=== PATIENT | female | born 1945 | race Caucasian/White ===

== ENCOUNTER 2017-08-16 13:23 | Day surgery (SDC) | payer OTHER ==
[~2017-08-16] VITALS: Ht 167.6 cm; Wt 96.2 kg
[~2017-08-16 13:23] MED LIST: LEVO-T75 MCG
== END 2017-08-16 15:25 | disposition home or self-care (01) ==
LOC: ORSCSDS 13:23
PROVIDERS: Internal Medicine Gastroenterology
PROC: 0DBL8ZX Excision of Transverse Colon, Via Natural or Artificial Opening Endoscopic, Diagnostic (ICD-10-PCS; principal; 2017-08-16 14:45)
PROC: 0DBN8ZX Excision of Sigmoid Colon, Via Natural or Artificial Opening Endoscopic, Diagnostic (ICD-10-PCS; principal; 2017-08-16 14:45)
PROC: 0DBH8ZX Excision of Cecum, Via Natural or Artificial Opening Endoscopic, Diagnostic (ICD-10-PCS; principal; 2017-08-16 14:45)
PROC: 0DBP8ZX Excision of Rectum, Via Natural or Artificial Opening Endoscopic, Diagnostic (ICD-10-PCS; principal; 2017-08-16 14:45)
DX: Z12.11 Encounter for screening for malignant neoplasm of colon (principal); D12.0 Benign neoplasm of cecum; D12.3 Benign neoplasm of transverse colon; K62.1 Rectal polyp; K63.5 Polyp of colon; K64.8 Other hemorrhoids; Z86.010 Personal history of colon polyps; E03.9 Hypothyroidism, unspecified; E78.5 Hyperlipidemia, unspecified; I10 Essential (primary) hypertension; Z79.899 Other long term (current) drug therapy; Z87.891 Personal history of nicotine dependence
CPT/HCPCS: 88305

== ENCOUNTER → 2018-11-24 | Outpatient (CLI) | payer MEDICARE | END | disposition home or self-care (01) | LOC: LAB SHORT 15:11 → PLD 15:11 | DX: B07.8 Other viral warts (principal) | CPT/HCPCS: 88305 ==

== ENCOUNTER 2020-02-12 12:09 | Emergency (ER) | payer MEDICARE ==
[~2020-02-12] VITALS: Ht 167.6 cm; Wt 104.3 kg
[2020-02-12] MEDS ORDERED: IMBRUVICA420 MG PO (12:37)
[2020-02-12] MEDS ORDERED: LOSARTAN POTASS50 M1 PO (12:37)
[2020-02-12] MEDS ORDERED: CEPH500 PO (14:09)
== END 2020-02-12 14:55 | disposition home or self-care (01) ==
LOC: ER 12:09
DX: S01.81XA Laceration without foreign body of other part of head, initial encounter (principal); S99.912A Unspecified injury of left ankle, initial encounter; H11.32 Conjunctival hemorrhage, left eye; E03.9 Hypothyroidism, unspecified; E06.9 Thyroiditis, unspecified; Z79.899 Other long term (current) drug therapy; W22.8XXA Striking against or struck by other objects, initial encounter
CPT/HCPCS: 73590; 73610; 99283-25

== ENCOUNTER 2020-07-02 05:23 | Observation (INO) | payer MEDICARE ==
[~2020-07-02] VITALS: Ht 167.6 cm; Wt 114.1 kg
[~2020-07-02 05:23] MED LIST changes: +CEPH500 PO; +IMBRUVICA420 MG PO; -LEVO-T75 MCG; +LEVO-T75 MCG PO; +LOSARTAN POTAS100 M1 PO
[2020-07-02 05:48] LABS: BASOPHILS ABSOLUTE AUTO 0.06 K/mm3 (0.00-0.23); BASOPHILS PERCENT AUTO 0 % (0-2); EOSINOPHILS ABSOLUTE AUTO 0.09 K/mm3 (0.00-0.68); EOSINOPHILS PERCENT AUTO 1 % (0-6); Hematocrit 40.7 % (33.0-51.0); Hemoglobin 13.4 g/dL (11.5-16.0); IMMATURE GRAN ABSOLUTE AUTO 0.05 K/mm3 (0.00-0.10); IMMATURE GRAN PERCENT AUTO 0 % (0-1); LYMPHOCYTES ABSOLUTE AUTO 3.14 K/mm3 (0.84-5.20); LYMPHOCYTES PERCENT AUTO 23 % (21-46); MONOCYTES ABSOLUTE AUTO 0.93 K/mm3 (0.16-1.47); MONOCYTES PERCENT AUTO 7 % (4-13); Mean Corpuscular HGB 30.7 pg (26.0-34.0); Mean Corpuscular HGB Conc 32.9 g/dL (31.5-36.5); Mean Corpuscular Volume 93 fL (80-100); Mean Platelet Volume 12.4 fL (9.1-12.4); NEUTROPHILS ABSOLUTE AUTO 9.39 K/mm3 (1.96-9.15); NEUTROPHILS PERCENT AUTO 69 % (41-73); Platelet Count 135 K/mm3 (150-400); RDW Standard Deviation 41.3 fL (35.1-46.3); Red Blood Cell Count 4.37 M/mm3 (3.80-5.20); White Blood Cell Count 13.66 K/mm3 (4.00-11.30)
[2020-07-02 06:04] LABS: Alanine Aminotransfer (ALT/SGP 20 U/L (12-78); Albumin, Blood 3.5 g/dL (3.4-5.0); Albumin/Globulin Ratio 1.3 (0.8-1.8); Alk Phos 73 U/L (50-136); Anion Gap 2 mmol/L (6-16); Aspartate Aminotrans (AST/SGOT 16 U/L (12-37); Bilirubin, Total 0.6 mg/dL (0.1-1.0); Blood Urea Nitrogen 15 mg/dL (8-24); Bun/Creatinine Ratio 18.1 (12.0-20.0); CO2, Blood 30 mmol/L (21-32); Calcium, Blood 8.4 mg/dL (8.5-10.1); Chloride, Blood 106 mmol/L (98-108); Creatinine, Blood 0.83 mg/dL (0.40-1.00); Globulin, Blood 2.6 g/dL (2.2-4.0); Glomerular Filtration Rate >60 (60-); Glucose, Blood 97 mg/dL (70-99); Potassium, Blood 4.3 mmol/L (3.5-5.5); Sodium, Blood 138 mmol/L (136-145); Total Protein, Blood 6.1 g/dL (6.4-8.2); Troponin I <0.015 ng/mL (0.000-0.040)
[2020-07-02] MEDS ORDERED: OMEP20ER PO (12:28)
[2020-07-02] MEDS ORDERED: ATOR10 PO (12:28)
[2020-07-02 15:07] LABS: International Normalized Ratio 0.95; Prothrombin Time Results 10.3 Sec (9.7-11.5)
--- NOTE | 2020-07-02 18:13 | NUR ---
SHIFT NOTE PT ARRIVED FROM ER THIS AFTERNOON WITH LT SIDED CP. PT ARRIVED STATING THAT PAIN IS WORSE WITH INSPIRATION, NOTHING HAS MADE PAIN BETTER. STS THAT FENTANYL DID NOT CONTROL PAIN WELL. PT REPORTS THAT PAIN BEGAN THIS EVENING. PT DID RECIEVE NITRO IN THE ER BY CAUSED HER TO HAVE HYPOTENSION WITH PRESSURES IN THE 80s. PT DID RECIEVE MORPHONE IVP FOR CP LATER IN THE DAY. PT WITH SHALLOW RAPID RESPIRATIONS. PT DENIES ANY RECENT ILLNESS. A/O X4.
[2020-07-03 04:53] LABS: BASOPHILS ABSOLUTE AUTO 0.06 K/mm3 (0.00-0.23); BASOPHILS PERCENT AUTO 0 % (0-2); EOSINOPHILS ABSOLUTE AUTO 0.02 K/mm3 (0.00-0.68); EOSINOPHILS PERCENT AUTO 0 % (0-6); Hematocrit 34.7 % (33.0-51.0); Hemoglobin 11.3 g/dL (11.5-16.0); IMMATURE GRAN ABSOLUTE AUTO 0.06 K/mm3 (0.00-0.10); IMMATURE GRAN PERCENT AUTO 0 % (0-1); LYMPHOCYTES ABSOLUTE AUTO 2.49 K/mm3 (0.84-5.20); LYMPHOCYTES PERCENT AUTO 18 % (21-46); MONOCYTES ABSOLUTE AUTO 1.67 K/mm3 (0.16-1.47); MONOCYTES PERCENT AUTO 12 % (4-13); Mean Corpuscular HGB 30.5 pg (26.0-34.0); Mean Corpuscular HGB Conc 32.6 g/dL (31.5-36.5); Mean Corpuscular Volume 94 fL (80-100); NEUTROPHILS ABSOLUTE AUTO 9.71 K/mm3 (1.96-9.15); NEUTROPHILS PERCENT AUTO 69 % (41-73); Platelet Count 126 K/mm3 (150-400); RDW Coefficient Variation 12.4 % (11.7-14.2); RDW Standard Deviation 42.6 fL (35.1-46.3); Red Blood Cell Count 3.71 M/mm3 (3.80-5.20); White Blood Cell Count 14.01 K/mm3 (4.00-11.30)
--- NOTE | 2020-07-03 04:57 | NUR ---
SHIFT SUMMARY PATIENT IS ALERT AND ORIENTED X4. SBA TO THE BEDSIDE COMMODE. NPO AFTER MIDNIGHT. PATIENT COMPLAINTS OF CP THAT INCREASES WITH INSPIRATION, CALLED HOSPITALIST AND MEDICATED PER EMAR. CP RELIEVED. NO OTHER COMPLAINTS OF CP. HEPARIN gtt INFUSING. 02 SATS 94% ON RA. VSS, NO ACUTE CHANGES. CALL LIGHT IN REACH.
[2020-07-03 05:03] LABS: Mean Platelet Volume 13.4 fL (9.1-12.4)
[2020-07-03 05:31] LABS: Magnesium, Blood 2.2 mg/dL (1.6-2.4)
[2020-07-03 05:32] LABS: Bun/Creatinine Ratio 23.4 (12.0-20.0); Calcium, Blood 8.4 mg/dL (8.5-10.1); Creatinine, Blood 1.07 mg/dL (0.40-1.00); Potassium, Blood 4.3 mmol/L (3.5-5.5)
[2020-07-03] MEDS ORDERED: NAPR500 PO (14:00)
[2020-07-03] MEDS ORDERED: ASPI325 PO (14:00)
--- NOTE | 2020-07-03 16:02 | NUR ---
REPORT CALLED TO AUDELIA CHAVEZ ON MEDICAL FLOOR. PT WITH HEPARIN INFUSING ON TRANSPORT. IV PATENT. PT VISITING WITH FAMILY, MARY HDEZ.
--- NOTE | 2020-07-03 16:47 | NUR ---
PATIENT ARRIVES AROUND 1630 IN W/C WITH HEPARIN INFUSING. HEPARIN D'C PER ORDER. TELE ON AND PER TECH SR AT 74. DENIES ANY C.P. OR DIFFICULTY BREATHING. LUNGS CLEAR. TO HAVE SECOND PART OF STRESS TEST TOMORROW MORNING AT 8AM. PATIENT AWARE CAN HAVE CAFFEINE UP TILL 12 HOURS PRIOR TO TEST. COOPERATIVE. PLEASANT. STEADY GAIT TO BATHROOM. INDEPENDENT IN ROOM. NPO AFTER MIDNITE. STS PAIN WORSE WHEN TAKING DEEP INSPIRATION. WCTM.
--- NOTE | 2020-07-03 18:35 | NUR ---
ADMIT: 07/02/20 DISCHARGE: DX: CP CC: kwilcox MANUEL CALL: Met with Ana Maria, call her at home for manuel. 1 week with pcp. RESIDENCE: home CAREGIVER: DESMOND VASQUES ([place]) DX: Leukemia, GERD, colon cancer, HTN, see list DME: none CCM: Referral- 2020 HOME HEALTH: none SUMMARY: 07/02/20 07/03/20 Met with Ana Maria, discussed care coordination and reviewed home assessment. Did not identify any care needs she would have at discharge. She has friends and a sister that will be helping her if needed, She provides all self care, drives, cooks and shops. Discussed manuel call and follow up appointment in 1 week with Rama. She is expected to discharge Tuesday and 2 study complete. cp Atypical chest pain: Etiology likely secondary to acute pericarditis, patient does admit to a history of recent viral illness 10 days ago. Also had a Covid vaccination done about a month ago.
--- NOTE | 2020-07-04 05:35 | NUR ---
SHIFT SUMMARY: A&OX4, VSS, TELEMETRY HAS REMAINED NSR WITH RATE IN THE 70'S. PATIENT RATES CHEST PAIN 3/10 WITH DEEP INSPIRATION. NAPROSEN WAS GIVEN X1 WITH GOOD EFFECT. PATIENT REPORTS PAIN IN MUCH BETTER THIS AM, EVEN WITH INSPRATION.
[2020-07-04 14:27] LABS: Anion Gap 2 mmol/L (6-16); Blood Urea Nitrogen 19 mg/dL (8-24); Bun/Creatinine Ratio 21.2 (12.0-20.0); CO2, Blood 28 mmol/L (21-32); Calcium, Blood 8.7 mg/dL (8.5-10.1); Chloride, Blood 106 mmol/L (98-108); Glomerular Filtration Rate >60 (60-); Glucose, Blood 110 mg/dL (70-99); Sodium, Blood 136 mmol/L (136-145)
--- NOTE | 2020-07-04 16:05 | NUR ---
DISCHARGE NOTE PATIENT HAD 2ND STRESS TEST TODAY. READ BY DR TENA. PATIENT DISCHARGED PER DR TENA ORDER. PATIENT DENIES CHEST PAIN THROUGHOUT SHIFT. NO ACUTE CHANGES NOTATED DURING SHIFT. PATIENT EDUCATED BY PAOLA CHAVEZ. PATIENT WHEELED OUT BY TIFFANIE DELA CRUZ RN AND PATIENTS SISTER TRANSPORTED. PATIENT STATED AGREEMENT AND UNDERSTOOD DISCHARGE INSTRUCTIONS. MALLIKA
--- NOTE | 2020-07-04 16:19 | NUR ---
THIS RN HAS ASSESSED THE PT. THIS RN REVIEWED & AGREES WITH STEAM TRAIN DRIVER DOCUMENTATION ON THE PT THIS SHIFT.
[2020-07-07] MEDS ORDERED: CITA20 PO (10:42)
== END 2020-07-04 15:23 | disposition home or self-care (01) ==
LOC: ER 05:23 → PCU 05:24 → MEDS 07-03 16:11 → ENPENDDIS 07-04 14:58 → MEDS 07-04 15:23
PROVIDERS: Emergency Medicine; Pharmacist; ADMIT Internal Medicine
DX: R07.89 Other chest pain (principal); I30.1 Infective pericarditis; B97.89 Other viral agents as the cause of diseases classified elsewhere; C91.11 Chronic lymphocytic leukemia of B-cell type in remission; E03.9 Hypothyroidism, unspecified; R79.1 Abnormal coagulation profile; K21.9 Gastro-esophageal reflux disease without esophagitis; I10 Essential (primary) hypertension; E78.5 Hyperlipidemia, unspecified; R59.0 Localized enlarged lymph nodes; R91.8 Other nonspecific abnormal finding of lung field; I95.2 Hypotension due to drugs; T46.3X5A Adverse effect of coronary vasodilators, initial encounter; Z87.891 Personal history of nicotine dependence; Z88.8 Allergy status to other drugs, medicaments and biological substances; Z79.899 Other long term (current) drug therapy; Z86.19 Personal history of other infectious and parasitic diseases; Z82.49 Family history of ischemic heart disease and other diseases of the circulatory system
CPT/HCPCS: 36415; 71046; 71260; 78452; 80048; 80053; 83735; 83880; 84484; 85025; 85379; 85610; 85730; 93005; 93010; 93017; 93306; 96361; 96374; 96375; 96376; 99285-25; A9270; A9500; G0378; J0706; J1644; J2270; J2785; J3010; J7030; Q9967

== ENCOUNTER 2020-07-07 16:16 | Inpatient (IN) | payer MEDICARE ==
[~2020-07-07] VITALS: Ht 167.6 cm; Wt 111.4 kg
[~2020-07-07 16:16] MED LIST changes: +ASPI325 PO; +ATOR10 PO; +CITA20 PO; +NAPR500 PO; +OMEP20ER PO
[2020-07-07 17:04] LABS: BASOPHILS ABSOLUTE AUTO 0.06 K/mm3 (0.00-0.23); BASOPHILS PERCENT AUTO 1 % (0-2); EOSINOPHILS ABSOLUTE AUTO 0.18 K/mm3 (0.00-0.68); EOSINOPHILS PERCENT AUTO 2 % (0-6); Hematocrit 36.3 % (33.0-51.0); Hemoglobin 11.6 g/dL (11.5-16.0); IMMATURE GRAN ABSOLUTE AUTO 0.04 K/mm3 (0.00-0.10); IMMATURE GRAN PERCENT AUTO 0 % (0-1); LYMPHOCYTES ABSOLUTE AUTO 3.22 K/mm3 (0.84-5.20); LYMPHOCYTES PERCENT AUTO 31 % (21-46); MONOCYTES ABSOLUTE AUTO 1.08 K/mm3 (0.16-1.47); MONOCYTES PERCENT AUTO 10 % (4-13); Mean Corpuscular Volume 94 fL (80-100); Mean Platelet Volume 12.4 fL (9.1-12.4); NEUTROPHILS ABSOLUTE AUTO 5.99 K/mm3 (1.96-9.15); NEUTROPHILS PERCENT AUTO 57 % (41-73); Platelet Count 187 K/mm3 (150-400); RDW Coefficient Variation 12.2 % (11.7-14.2); RDW Standard Deviation 42.3 fL (35.1-46.3); Red Blood Cell Count 3.87 M/mm3 (3.80-5.20); White Blood Cell Count 10.57 K/mm3 (4.00-11.30)
[2020-07-07 17:21] LABS: Alanine Aminotransfer (ALT/SGP 92 U/L (12-78); Albumin, Blood 3.1 g/dL (3.4-5.0); Albumin/Globulin Ratio 0.9 (0.8-1.8); Alk Phos 204 U/L (50-136); Anion Gap 7 mmol/L (6-16); Aspartate Aminotrans (AST/SGOT 58 U/L (12-37); Bilirubin, Total 0.7 mg/dL (0.1-1.0); Blood Urea Nitrogen 16 mg/dL (8-24); Bun/Creatinine Ratio 17.9 (12.0-20.0); CO2, Blood 26 mmol/L (21-32); Calcium, Blood 9.1 mg/dL (8.5-10.1); Chloride, Blood 106 mmol/L (98-108); Globulin, Blood 3.5 g/dL (2.2-4.0); Glomerular Filtration Rate >60 (60-); Glucose, Blood 86 mg/dL (70-99); Potassium, Blood 4.3 mmol/L (3.5-5.5); Sodium, Blood 139 mmol/L (136-145); Total Protein, Blood 6.6 g/dL (6.4-8.2); Troponin I <0.015 ng/mL (0.000-0.040)
[2020-07-07] MEDS ORDERED: COLCRYS0.6 M1 PO (17:44)
[2020-07-07 18:15] LABS: C-REACTIVE PROTEIN, EXT RANGE 9.62 mg/dL (0.000-0.300)
[2020-07-07 18:23] LABS: C-Reactive Protein, High Sens. 87.5 mg/L (0.000-3.000)
[2020-07-07 19:41] LABS: Automated BF RBC Count 0.327 M/mm3 (0-0); Automated BF WBC Count 1.389 K/mm3 (0-999); Body Fluid WBC Count 1389 /mm3 (0-999); RBC Count, Body Fluid 327000 /mm3 (0-0)
[2020-07-07 19:43] LABS: Albumin, Body Fluid 2.5 g/dL; Glucose, Body Fluid 75 mg/dL; Protein, Body Fluid 4.4 g/dL
--- NOTE | 2020-07-07 20:00 | NUR ---
AT 1908 PATIENT ARRIVED TO ICU 4 VIA BED FROM IT INFRASTRUCTURE CONSULTANT , PLACED ON ICU MONITORS. PARACARDIAL DRAIN TO GRAVITY BAG, SWITCHED TO VACUTAINER BY SHARLENE AND JHOAN RN'S WITH SMALL AMT OF BLOODY DRAINAGE REMOVED INTO CONTAINER. PATIENT HAVING NO COMPLAINTS AT THIS TIME. AT 193 DOCTOR PAUL IN TO SEE PATIENT, VACUTAINER CHANGED AFTER DOCTOR HERMAN FLUSHED LINE WITH 20 CC OF NS AT BEDSIDE. AT 1999 PAT[place] UP TO [facility] [place] 1200 CC OF YELLOW URINE. PATIENT KARRIE GETTING UP WELL, NO CHANGES TO DRAIN OR DRAIN SITE.
[2020-07-07] MEDS ORDERED: VITAMIN D310 MC5 PO ×2 (20:16→20:19)
[2020-07-07] MEDS ORDERED: VITAMIN D310 MC4 PO (20:17)
[2020-07-07 21:01] LABS: Appearance, Body Fluid Bloody (Clear); Color, Body Fluid Red (None-Yellow); Total Cell Count, Body Fluid 100
--- NOTE | 2020-07-07 21:40 | NUR ---
REAGAN REHEAT FURNACE OPERATOR NOTIFIED OF PATIENT CONTINUED HYPERTENSION, AND COMPLAINS OF SLIGHT PRESSURE TO HER RIGHT CHEST BELOW HER RIGHT BREAST AREA. SEE NEW ORDERS
--- NOTE | 2020-07-07 23:46 | NUR ---
PATIENT C/O PRESSURE TYPE PAIN TO RIGHT CHEST AREA, UNDER RIGHT BREAST UP TO RIGHT AXIAL. HAD RELIEF OF PAIN WITH FENTANYL IV THEN PAIN RETURNED WITH SHARP PAIN UNDER RIGHT BREAST THAT INCREASED WITH DEEP BREATH. LUNG SOUNDS CLEAR NO SWELLING SEEN TO DRAIN INSERTION SITE OR TO SURROUNDING AREA'S NO CREPITUS. PATIENT UP TO BSC TO VOID HAVING INCREASE TO PAIN AND HAVING AUDIBLE WHEEZES. NO RELIEF WITH FENTANYL. NO DRAINAGE FROM PERICARDIAL DRAIN. HYPERTENSION CONTINUES. DOCTOR PAUL AND MONICA TOOL TURRET LATHE SET UP OPERATOR BOTH NOTIFIED OF CHANGES SEE NEW ORDERS. CXR AND EKG DONE. PATIENT KARRIE PO WITHOUT DIFFICULTY. MEDICATIONS GIVEN SEE EMAR.
--- NOTE | 2020-07-08 06:25 | NUR ---
SUMMARY PATIENT VERBALIZED PAIN RELIEF. WAS ABLE TO GET SOME SLEEP DURING THE NIGHT. AWAKENS TO VERBAL STIMULI. PERICARDIAL DRAIN INSERTION SITE REMAINS UNCHANGED T/O NIGHT. RED DRAINAGE WITHIN LINE NO DRAINAGE IN VACUUM CANISTER. PATIENT NO LONGER HYPERTENSIVE. WHILE SLEEPING BIOX DROPPING TO 88% OXYGEN PLACED 2L/NC WHILE SHE IS SLEEPING.
--- NOTE | 2020-07-08 07:09 | NUR ---
Received report from Vaishnavi CHAVEZ. Patient is awake and alert in bed and is able to commun icate her needs. She is on 2L O2 via NC and sats 96%, will wean off as she just needed for sleeping. She has pericardial drain to container and has approx. 3cc of seroussanguinous fluid. She has 18ga IV to LUFA and is infusing 1bag NS at 75 ml/hr. She also has 20ga IV to RAC dressing intact and site WNL's and is flushed and SL after Blood draw. She is independent in bed and positions self for comfort. She denies any current needs.
[2020-07-08 07:31] LABS: BASOPHILS ABSOLUTE AUTO 0.03 K/mm3 (0.00-0.23); BASOPHILS PERCENT AUTO 0 % (0-2); EOSINOPHILS ABSOLUTE AUTO 0.15 K/mm3 (0.00-0.68); EOSINOPHILS PERCENT AUTO 2 % (0-6); Hematocrit 35.4 % (33.0-51.0); Hemoglobin 11.6 g/dL (11.5-16.0); IMMATURE GRAN ABSOLUTE AUTO 0.03 K/mm3 (0.00-0.10); IMMATURE GRAN PERCENT AUTO 0 % (0-1); LYMPHOCYTES ABSOLUTE AUTO 2.84 K/mm3 (0.84-5.20); LYMPHOCYTES PERCENT AUTO 32 % (21-46); MONOCYTES ABSOLUTE AUTO 1.04 K/mm3 (0.16-1.47); MONOCYTES PERCENT AUTO 12 % (4-13); Mean Corpuscular HGB 30.7 pg (26.0-34.0); Mean Corpuscular HGB Conc 32.8 g/dL (31.5-36.5); Mean Corpuscular Volume 94 fL (80-100); Mean Platelet Volume 11.9 fL (9.1-12.4); NEUTROPHILS ABSOLUTE AUTO 4.73 K/mm3 (1.96-9.15); NEUTROPHILS PERCENT AUTO 54 % (41-73); Platelet Count 206 K/mm3 (150-400); RDW Coefficient Variation 12.1 % (11.7-14.2); RDW Standard Deviation 41.9 fL (35.1-46.3); Red Blood Cell Count 3.78 M/mm3 (3.80-5.20); White Blood Cell Count 8.82 K/mm3 (4.00-11.30)
[2020-07-08 07:46] LABS: Alanine Aminotransfer (ALT/SGP 62 U/L (12-78); Albumin, Blood 2.6 g/dL (3.4-5.0); Albumin/Globulin Ratio 0.8 (0.8-1.8); Alk Phos 167 U/L (50-136); Anion Gap 6 mmol/L (6-16); Aspartate Aminotrans (AST/SGOT 26 U/L (12-37); Bilirubin, Total 0.4 mg/dL (0.1-1.0); Blood Urea Nitrogen 19 mg/dL (8-24); Bun/Creatinine Ratio 20.3 (12.0-20.0); CO2, Blood 27 mmol/L (21-32); Calcium, Blood 8.3 mg/dL (8.5-10.1); Chloride, Blood 107 mmol/L (98-108); Creatinine, Blood 0.94 mg/dL (0.40-1.00); Globulin, Blood 3.1 g/dL (2.2-4.0); Glomerular Filtration Rate >60 (60-); Glucose, Blood 94 mg/dL (70-99); Potassium, Blood 4.4 mmol/L (3.5-5.5); Sodium, Blood 140 mmol/L (136-145); Total Protein, Blood 5.7 g/dL (6.4-8.2)
--- NOTE | 2020-07-08 09:10 | NUR ---
Patient remains alert and oriented and communicates her needs. Dr Blood by ansd discussed with her to stay onother day to watch. ECHO done and awaiting results. No new amount of pericardial drainage. IV fluid was for 1 bag and now dc'd, flushed and SL'd. She tolerated am meds and breakfast well. She uses call light appropriately.
--- NOTE | 2020-07-08 11:19 | NUR ---
Dr Richardson in assessing patient and no new orders. Gave her supplies and she did am care. Spiritual care by to see patient. Placed SCD's on patient and repositioned her in bed. VSS, See EMR
[2020-07-08 11:44] LABS: Lactate Dehydrogenase, Body Fl 580 U/L; Triglycerides, Body Fluid 59 mg/dL
[2020-07-08 13:21] LABS: pH, Body Fluid 7.9
--- NOTE | 2020-07-08 13:28 | NUR ---
Patient tolerated lunch with minimal assistance. Still no increased output of the pericardial draing, seroussanguinous fluid. VSS, See EMR. She has been on phone most of day talking with friends. Systolic 140's and HR 70's. gave lasixs and she has 1500 mls of clear yellow output.
--- NOTE | 2020-07-08 14:00 | NUR ---
Patient arrived via gurney from ER, he was a two person slide transfer. He came on home vent SIMV mode 14, 400, PS 12, PEEP 4, and sats 96%. Patient has 2L O2 bleed in to vent. Patient has 22ga IV in right hand, dressing intact and site WNL's. Patient has 4Fr shiley trach, that is to be changed to 6Fr today at 1730. Patient has Peg tube to upper quad. He hassupra pubic cath draining to gravity light kiki urine. Mother at bedside and is suctioning trach and ST doing oral care prior to going to head CT. Patient is able to communicate with mother and minimal to staff. Dr Russo in with patient doing assessment.
--- NOTE | 2020-07-08 15:30 | NUR ---
patient has been resting off and on. VSS, See EMR. She has been off and on phone most of shift. She has denied and shest pain. There and been no new output. aman worked well. She denies any current needs.
--- NOTE | 2020-07-08 15:59 | NUR ---
Patient went to CT and after reading is going to be transferred to [facility]. Echo done. CN placed 20/8 Powerlide to [facility] and VBG sent. He continues on same home vent. He is afebrile at 98.2 degrees. Trach change out postponed with bronch and thoracentesis. Patient resting. Dr Russo spoke with family and patient.
--- NOTE | 2020-07-08 17:00 | NUR ---
ADMIT: 07/07/2020 DISCHARGE: DX: pericaridal effusion with cardiac tamponade CC: Chloé Mcmahon MANUEL CALL: RESIDENCE: Home - [facility] [address] [address], [place] [address] CAREGIVER: DESMOND VASQUES ([place]) HOME PHONE: DX: pericarditis (hospitalized- discharge 07/04/20), CLL, HTN DME: None CCM: Referral 2019 HOME HEALTH: None Update 07/08/2020 1130 - Discussed care with Dr. Jordan Richardson. Pt. not appropriate for discharge at this time. Per notes from hospitalist this am pericardial tube will be left in place for 24 hours. Recheck limited echocardiogram tomorrow. SUMMARY: Past medical history significant for recent viral pericarditis, discharged 07/04/20. Pt. was undergoing a follow-up echocardiogram 07/07/20, and was subsequently sent to the ED due to ECHO showing large pericardial effusion with tamponade. A/P - 1: Pericardial effusion with cardiac tamponade. - Cardiology consult, Dr. Blood - patient transferred to cath lab nurse emergently for drainage. - Fluid analysis ordered - Cell count, gram stain, protein, cytology, bacterial and viral cultures, - ICU after cath lab nurse - Telemetry and pulse oximetry - Scheduled Naproxen 500 mg BID - Pain and nausea control 2: Elevated liver enzymes - New for patient, possibly due to congestion r/t tamponade - CMP in AM 3: HTN - Hypertensive 184/79 in ED, waiting for transfer to cath lab nurse. Hx. of HTN. - Continue home medications 4: HLD - Continue home medications 5: Hypothyroidism - Continue home synthroid 6: GERD - Continue home omeprazole 7: Mechanical venous thromboembolism (VTE) - prophylaxis in place - Chloé Mcmahon Notes Copied
--- NOTE | 2020-07-08 17:47 | NUR ---
Spiritual care note: Mrs. Burch has a positive spirit and feels blessed to have made it through so many medical problems. She states that she is in remission after cancer treatments and feels hopeful that proceedure this admission will allow her to "get back to normal." She feels well-loved and supported by family and friends and is deeply appreciative of prayer/spiritual direction. I will remain available.
--- NOTE | 2020-07-08 18:10 | NUR ---
Patient tolerated dinner with little help. She took meds with water and no other assistance needed. VSS, See EMR. She continues rest and awakens easily for care. Bilateral IV's flushed and SL. Dr Blood will reassess tomorrow am.
--- NOTE | 2020-07-08 20:29 | NUR ---
PATIENT AWAKE WATCHING TV AND TALKING WITH FRIENDS AND FAMILY ON CELL PHONE. RESPIRATORY PANEL SWAB DONE AND SENT TO LAB. PATIENT DENIES PAIN AT THIS TIME. PERICARDIAL DRAIN TO MID CHEST WITH DRESSING INTACT SMALL AMT OF BLOODY DRAINAGE CONTAINED IN DRESSING AND DRY. AREA AROUND SITE SOFT, NO SWELLING SEEN. SMALL AMT OF PINK/YELLOW DRAINAGE IN VACUTAINER. HEART TONES REMAIN DISTANT.
[2020-07-08 21:29] LABS: Adenovirus Not Detected (NOT DETECT); Coronavirus 229E Not Detected (NOT DETECT); Coronavirus HKU1 Not Detected (NOT DETECT); Coronavirus NL63 Not Detected (NOT DETECT); Coronavirus OC43 Not Detected (NOT DETECT)
[2020-07-08 21:30] LABS: Bordetella pertussis Not Detected (NOT DETECT); Chlamydophila pneumoniae Not Detected (NOT DETECT); Human Metapneumovirus Not Detected (NOT DETECT); Human Rhinovirus/Enterovirus Not Detected (NOT DETECT); Influenza A/2009-H1 Not Detected (NOT DETECT); Influenza A/H1 Not Detected (NOT DETECT); Influenza A/H3 Not Detected (NOT DETECT); Influenza B Not Detected (NOT DETECT); Mycoplasma pneumoniae Not Detected (NOT DETECT); Parainfluenza Virus 1 Not Detected (NOT DETECT); Parainfluenza Virus 2 Not Detected (NOT DETECT); Parainfluenza Virus 3 Not Detected (NOT DETECT); Parainfluenza Virus 4 Not Detected (NOT DETECT); Respiratory Syncytial Virus Not Detected (NOT DETECT); SARS-Cov-2 (COVID-19), BioFire Not Detected (NOT DETECT)
--- NOTE | 2020-07-09 01:08 | NUR ---
WHILE SLEEPING PATIENT OXYGEN SAT DOWN TO 87% OXYGEN PLACE AT 2L/NC TO MAINTAIN BIOX >90%
[2020-07-09 06:35] LABS: Alanine Aminotransfer (ALT/SGP 44 U/L (12-78); Albumin, Blood 2.4 g/dL (3.4-5.0); Albumin/Globulin Ratio 0.9 (0.8-1.8); Alk Phos 138 U/L (50-136); Anion Gap 3 mmol/L (6-16); Aspartate Aminotrans (AST/SGOT 11 U/L (12-37); Bilirubin, Total 0.3 mg/dL (0.1-1.0); Blood Urea Nitrogen 20 mg/dL (8-24); Bun/Creatinine Ratio 23.4 (12.0-20.0); CO2, Blood 29 mmol/L (21-32); Calcium, Blood 8.1 mg/dL (8.5-10.1); Chloride, Blood 106 mmol/L (98-108); Creatinine, Blood 0.86 mg/dL (0.40-1.00); Globulin, Blood 2.8 g/dL (2.2-4.0); Glomerular Filtration Rate >60 (60-); Glucose, Blood 114 mg/dL (70-99); Potassium, Blood 4.4 mmol/L (3.5-5.5); Sodium, Blood 138 mmol/L (136-145); Total Protein, Blood 5.2 g/dL (6.4-8.2)
--- NOTE | 2020-07-09 06:43 | NUR ---
SUMMARY PATIENT RESTING QUIETLY T/O NIGHT. WHILE SLEEPING BIOX DOWN TO 87% OXYGEN PLACED 2L/NC TO MAINTAIN BIOX >90% WHILE SLEEPING. PERICARDIAL DRAIN REMAINS UNCHANGED WITH MIN YELLOW/PINK SEROSANG FLUID. DRESSING AND AREA AROUND INSERTION SITE REMAINS UNCHANGED. NO C/O PAIN T/O NIGHT, ABLE TO ASSIST WITH REPOSITIONING IN BED WITHOUT DIFFICULTY.
[2020-07-09 07:00] LABS: BASOPHILS ABSOLUTE AUTO 0.06 K/mm3 (0.00-0.23); BASOPHILS PERCENT AUTO 1 % (0-2); EOSINOPHILS ABSOLUTE AUTO 0.16 K/mm3 (0.00-0.68); EOSINOPHILS PERCENT AUTO 2 % (0-6); Hematocrit 33.8 % (33.0-51.0); Hemoglobin 10.9 g/dL (11.5-16.0); IMMATURE GRAN ABSOLUTE AUTO 0.03 K/mm3 (0.00-0.10); IMMATURE GRAN PERCENT AUTO 0 % (0-1); LYMPHOCYTES ABSOLUTE AUTO 2.02 K/mm3 (0.84-5.20); LYMPHOCYTES PERCENT AUTO 24 % (21-46); MONOCYTES ABSOLUTE AUTO 0.94 K/mm3 (0.16-1.47); MONOCYTES PERCENT AUTO 11 % (4-13); Mean Corpuscular HGB 30.2 pg (26.0-34.0); Mean Corpuscular HGB Conc 32.2 g/dL (31.5-36.5); Mean Corpuscular Volume 94 fL (80-100); Mean Platelet Volume 12.1 fL (9.1-12.4); NEUTROPHILS ABSOLUTE AUTO 5.08 K/mm3 (1.96-9.15); NEUTROPHILS PERCENT AUTO 61 % (41-73); Platelet Count 193 K/mm3 (150-400); RDW Standard Deviation 41.9 fL (35.1-46.3); Red Blood Cell Count 3.61 M/mm3 (3.80-5.20); White Blood Cell Count 8.29 K/mm3 (4.00-11.30)
--- NOTE | 2020-07-09 08:26 | NUR ---
SHIFT ASSESSMENT PATIENT A AND O X4, PATIENT FEBRILE WITH NO COMPLAINTS OF PAIN. LUNGS CLEAR BILATERALLY WITH NO EXERTION, BOWEL SOUNDS HEARD IN ALL FOUR QUADRANTS, PATIENT HAS A FOLLY THAT IS DRAINING AND PATIENT, SKIN IS DRY AND INTACT, BOTH IVS FLUSHED AND SALINE LOCKED. BED LOW WITH CALL LIGHT IN REACH. WILL CONTINUE TO MONITOR THE PATIENT.
--- NOTE | 2020-07-09 08:30 | NUR ---
INITIAL ASSESSMENT I AGREE WITH STUDENT NURSE DOCUMENTATION. PATIENT ALERT AND ORIENTED X 4, AFEBRILE. PATIENT STATES PAIN IS MANAGEABLE AT THIS TIME. LUNGS CLEAR THROUGHOUT. PATIENT SATTING 90% AND GREATER ON RA. REPORT RECEIVED THAT PATIENT PLACED ON 2 L NC TO KEEP SATS 90% AND GREATER ON SITECORE DEVELOPER. PATIENT IN SR, HR 60S TO 70S. SBP 1-TEENS TO 160S. PERICARDIAL EFFUSION DRAIN TO MID CHEST TO SUCTION BULB; DRAINING MINIMAL AMOUNT OF SEROSANGUINEOUS FLUID. EDEMA NOTED TO BLES. SCDS IN PLACE. GI APPEARS WNL. OWENS IN PLACE DRAINING LIGHT YELLOW, CLEAR URINE. PATIENT RECEIVING SCHEDULED LASIX. REDDENED SKIN TO LOWER ABD. IVS FLUSHED AND SALINE LOCKED. BED LOW, CALL LIGHT IN REACH. WILL CONTINUE TO MONITOR PATIENT FREQUENTLY THROUGHOUT SHIFT.
--- NOTE | 2020-07-09 08:32 | NUR ---
DR. MILLER IN TO SEE PATIENT. INFORMED PATIENT BP SOFT DURING NIGHT. ORDERS RECEIVED.
--- NOTE | 2020-07-09 12:30 | NUR ---
PATIENT AFEBRILE. NO COMPLAINTS AT THIS TIME. PATIENT REMAINS SATTING 90% AND GREATER ON RA. PATIENT IN SR, HR 60S TO 70S. SBP 130S TO 150S. PERICARDIAL DRAIN PULLED BY DR. MILLER AT 1227. GAUZE AND TEGADERM IN PLACE. NO BLEEDING NOTED. NO OTHER ACUTE CHANGES TO NOTE ON AT THIS TIME. WILL CONTINUE TO MONITOR.
--- NOTE | 2020-07-09 16:47 | NUR ---
PATIENT AFEBRILE. NO COMPLAINTS OF PAIN. HR 60S TO 70S. SBP 130S TO 160S. PATIENT REMAINS SATTING 90% AND GREATER ON RA. OWENS REMOVED; PATIENT TOLERATED WELL. NO OTHER ACUTE CHANGES TO NOTE ON AT THIS TIME. WILL CONTINUE TO MONITOR.
--- NOTE | 2020-07-09 18:25 | NUR ---
SHIFT SUMMARY PATIENT REMAINED ALERT AND ORIENTED X 4, AFEBRILE. PATIENT HAD NO COMPLAINTS OF PAIN. PATIENT REMAINED SATTING 90% AND GREATER ON RA. PATIENT REMAINED IN SR, HR 60S TO 70S. SBP 1-TEENS TO 160S. NO BM THIS SHIFT. PATIENT GIVEN BROWN COW DRINK TO HELP WITH SOFTENING STOOL PER PATIENT REQUEST. OWENS DRAINED 2650 MLS OF LIGHT YELLOW COLORED URINE. OWENS REMOVED THIS SHIFT. PATIENT REPORTS VOIDING WITH LIBRARY MONITOR SINCE. PERICARDIAL EFFUSION DRAIN AND SUCTION BULB REMOVED THIS SHIFT. VERY MINIMAL AMOUNT OF SEROSANGUINEOUS FLUID OUT FROM IT BEFORE REMOVAL. DRESSING AT SITE REMAINS C/D/I. IVS REMAIN SALINE LOCKED. ECHO PERFORMED THIS SHIFT. PATIENT RECEIVED COMPLETE BED BATH THIS SHIFT. PATIENT MADE PCU STATUS. PATIENT HAS NO COMPLAINTS AT THIS TIME. BED LOW, CALL LIGHT IN REACH. REPORT WILL BE GIVEN TO ONCOMING GROUP THERAPY COUNSELOR NURSE SHORTLY.
[2020-07-10 03:51] LABS: BASOPHILS ABSOLUTE AUTO 0.06 K/mm3 (0.00-0.23); BASOPHILS PERCENT AUTO 1 % (0-2); EOSINOPHILS ABSOLUTE AUTO 0.11 K/mm3 (0.00-0.68); EOSINOPHILS PERCENT AUTO 1 % (0-6); Hematocrit 34.8 % (33.0-51.0); Hemoglobin 11.4 g/dL (11.5-16.0); IMMATURE GRAN ABSOLUTE AUTO 0.05 K/mm3 (0.00-0.10); IMMATURE GRAN PERCENT AUTO 1 % (0-1); LYMPHOCYTES ABSOLUTE AUTO 2.13 K/mm3 (0.84-5.20); LYMPHOCYTES PERCENT AUTO 20 % (21-46); MONOCYTES ABSOLUTE AUTO 1.23 K/mm3 (0.16-1.47); MONOCYTES PERCENT AUTO 12 % (4-13); Mean Corpuscular HGB 29.8 pg (26.0-34.0); Mean Corpuscular HGB Conc 32.8 g/dL (31.5-36.5); Mean Corpuscular Volume 91 fL (80-100); Mean Platelet Volume 11.8 fL (9.1-12.4); NEUTROPHILS ABSOLUTE AUTO 6.94 K/mm3 (1.96-9.15); NEUTROPHILS PERCENT AUTO 66 % (41-73); Platelet Count 216 K/mm3 (150-400); RDW Coefficient Variation 11.9 % (11.7-14.2); RDW Standard Deviation 39.4 fL (35.1-46.3); Red Blood Cell Count 3.82 M/mm3 (3.80-5.20); White Blood Cell Count 10.52 K/mm3 (4.00-11.30)
[2020-07-10 04:09] LABS: Alanine Aminotransfer (ALT/SGP 34 U/L (12-78); Albumin, Blood 2.5 g/dL (3.4-5.0); Albumin/Globulin Ratio 0.9 (0.8-1.8); Alk Phos 144 U/L (50-136); Anion Gap 2 mmol/L (6-16); Aspartate Aminotrans (AST/SGOT 14 U/L (12-37); Bilirubin, Total 0.5 mg/dL (0.1-1.0); Blood Urea Nitrogen 14 mg/dL (8-24); Bun/Creatinine Ratio 18.3 (12.0-20.0); CO2, Blood 31 mmol/L (21-32); Calcium, Blood 8.2 mg/dL (8.5-10.1); Chloride, Blood 103 mmol/L (98-108); Creatinine, Blood 0.76 mg/dL (0.40-1.00); Globulin, Blood 2.9 g/dL (2.2-4.0); Glomerular Filtration Rate >60 (60-); Glucose, Blood 105 mg/dL (70-99); Potassium, Blood 4.3 mmol/L (3.5-5.5); Sodium, Blood 136 mmol/L (136-145); Total Protein, Blood 5.4 g/dL (6.4-8.2)
--- NOTE | 2020-07-10 05:21 | NUR ---
STUNTMAN SUMMARY PT DENIED ANY CP OR DYSPNEA THIS SHIFT, PT TOLERATED AMBULATING TO TOILET FROM BED W/O BECOMING SOB. BP ELEVATED AT START OF SHIFT W SBP IN 150'S BUT RESOLVED AFTER RECIEVING HER HS DOSE OF LOPRESSOR. SITE ON THE PT'S CHEST WHERE DRAIN WAS REMOVED SHOWS NO S/S OF INFLAMATION AND DRESSING IS C/D/I. PT MAINTAINED O2 SATS >92% ON RM AIR THIS SHIFT. PT GIVEN MILK OF MAG AT START OF SHIFT AND PT HAD BM'S X2. PT HAS BEEN VOIDING WELL THIS SHIFT FOLLOWING REMOVAL OF OWENS. TELE- NSR 60-70'S. WCTM.
--- NOTE | 2020-07-10 09:26 | NUR ---
Assumed care of pt at 0700. Report received from Dick CHAVEZ. Pt A&O x 4. Answers questions. Follows commands. Verbalizes needs. Pleasant and cooperative with care. Independent in room. Pt on room air. SpO2 90% or greater. SR per monitor. BP stable. Pt sitting up in chair. Call light in reach. Pt denies need at this time.
--- NOTE | 2020-07-10 10:20 | NUR ---
Echocardiogram completed.
--- NOTE | 2020-07-10 11:25 | NUR ---
Paula with Bedside RN Sofya prior to Pt visit and discussed case. Pt to possibly D/C home today. Pt sitting in chair upon arrival. Pt denies pain and dyspnea at this time. Inquired about family with Pt reporting losing her to cancer 5 years ago. Pt briefly tearful and this RN offered emotional support. Pt has a sister who lives in [place] and all other family live out of state. Engaged in therapeutic discussion regarding advanced directives. Pt expresses interest in learning more. Educated on each section to complete and life sustaing treatments that are mentioned in the AD. Discussed the importance of considering a healthcare international account representative when completing AD. Pt will take AD home and discuss with her sister when completing. Pt reports no concerns when going home. Pt reports supportive friends and neighbors. Pt expresses appreciation of visit. Palliative Care will remain available.
--- NOTE | 2020-07-10 12:22 | NUR ---
Dr Rivera Richardson in to see patient. States that pt may discharge home after echocardiogram has been read.
--- NOTE | 2020-07-10 16:10 | NUR ---
Per Dr Blood, pt should not discharge home today as pericardial effusion is reoccurring. Plan to monitor pt overnight as PCU status, obtain echocardiogram tomorrow AM to evaluate appropriateness for discharge.
--- NOTE | 2020-07-10 18:13 | NUR ---
SUMMARY Pt remains independnent in room. Free of chest pain or shortness of breath. SR per monitor. BP stable. Pt tearful this afternoon, but talking to friends on phone. States she really does not want to be transferred to [place] if her pericardial effusion worsens. Pt also stressed that the road to her house is being repaved tomorrow and so she will not be able to go home. Pt does, however, verbalize understanding and satisfaction with being monitored overnight. Will continue to closely monitor until care handoff and bedside report with oncoming RN.
[2020-07-11 03:44] LABS: BASOPHILS ABSOLUTE AUTO 0.06 K/mm3 (0.00-0.23); BASOPHILS PERCENT AUTO 1 % (0-2); EOSINOPHILS ABSOLUTE AUTO 0.13 K/mm3 (0.00-0.68); EOSINOPHILS PERCENT AUTO 1 % (0-6); Hematocrit 35.2 % (33.0-51.0); Hemoglobin 11.5 g/dL (11.5-16.0); IMMATURE GRAN ABSOLUTE AUTO 0.04 K/mm3 (0.00-0.10); IMMATURE GRAN PERCENT AUTO 0 % (0-1); LYMPHOCYTES PERCENT AUTO 21 % (21-46); MONOCYTES ABSOLUTE AUTO 1.32 K/mm3 (0.16-1.47); MONOCYTES PERCENT AUTO 13 % (4-13); Mean Corpuscular HGB 29.6 pg (26.0-34.0); Mean Corpuscular HGB Conc 32.7 g/dL (31.5-36.5); Mean Corpuscular Volume 91 fL (80-100); Mean Platelet Volume 11.8 fL (9.1-12.4); NEUTROPHILS ABSOLUTE AUTO 6.41 K/mm3 (1.96-9.15); NEUTROPHILS PERCENT AUTO 64 % (41-73); Platelet Count 211 K/mm3 (150-400); RDW Coefficient Variation 11.8 % (11.7-14.2); Red Blood Cell Count 3.89 M/mm3 (3.80-5.20); White Blood Cell Count 10.06 K/mm3 (4.00-11.30)
[2020-07-11 04:00] LABS: Alanine Aminotransfer (ALT/SGP 27 U/L (12-78); Albumin, Blood 2.6 g/dL (3.4-5.0); Albumin/Globulin Ratio 0.8 (0.8-1.8); Alk Phos 137 U/L (50-136); Anion Gap 4 mmol/L (6-16); Aspartate Aminotrans (AST/SGOT 12 U/L (12-37); Bilirubin, Total 0.6 mg/dL (0.1-1.0); Blood Urea Nitrogen 19 mg/dL (8-24); Bun/Creatinine Ratio 21.3 (12.0-20.0); CO2, Blood 30 mmol/L (21-32); Calcium, Blood 8.1 mg/dL (8.5-10.1); Chloride, Blood 99 mmol/L (98-108); Creatinine, Blood 0.89 mg/dL (0.40-1.00); Globulin, Blood 3.1 g/dL (2.2-4.0); Glomerular Filtration Rate >60 (60-); Glucose, Blood 109 mg/dL (70-99); Potassium, Blood 4.5 mmol/L (3.5-5.5); Sodium, Blood 133 mmol/L (136-145); Total Protein, Blood 5.7 g/dL (6.4-8.2)
--- NOTE | 2020-07-11 05:47 | NUR ---
SHIFT SUMMARY NO ACUTE CHANGES THIS SHIFT. VSS EXCEPT HTN IN BEGINNING OF SHIFT THAT DROPPED TO NORMAL PARAMETERS WITH REST OF VS. AXO. ON RA. NO CHANGES NOTED TO AREA SURROUNDINTG PERICARDIAL DRAIN DC SITE. PT DENYING CP/PRESSURE. DOES BECOME TACHYPNEIC WITH EXERTION BUT DOES NOT REQUIRE O2 AT THOSE TIMES. OTHERWISE, PT HAS SLEPT FOR MAJORITY OF SHIFT. WCTM.
--- NOTE | 2020-07-11 08:31 | NUR ---
Update 07/10/20 15:30 - Per discussion with Dr. Richardson, pt. is not is discharging at this time. pericaridal fluid has increased. Cardiology is advising that pt. be monitored for 24 hours and re-check limited echo tomorrow. Visited pt. in ICU. Nurse had just informed her that she would be staying. She was tearful. She is concerned that if she were to be discharged tomorrow, she will not make it home as they are paving her street and she will not have access. To discussed alternative options for transportation. Pt. will need to be able to get to her home and rest. In the case that the patient is discharged tomorrow, we will work to arrange for transportation directly to her home and adjust as needed. I advised pt. to call if she has any additional questions or concerns. Noted by Chloé Mcmahon Update 07/10/20 0260 - Pt. contacted me by phone to inquire about her discharge time. I advised her that if she was to be discharged it would likely be in the evening, but that her echo needed to be reviewed first. She requested that I reach out to Dr. Richardson to ask about discharge, as she was anxious to plan. Noted by Chloé Mcmahon
--- NOTE | 2020-07-11 13:22 | NUR ---
Update 07/11/20: Met with Dr. Block this AM to discuss pt. care. Awaiting results of echo. No discharge date set at this time.
--- NOTE | 2020-07-11 14:16 | NUR ---
Per Dr Chiang, pt is okay to discharge home. Dr Block updated. Echocardiogram scheduled for one week.
[2020-07-11] MEDS ORDERED: Acetaminophen325 M1 PO (14:55)
[2020-07-11] MEDS ORDERED: INDO50 PO (14:56)
[2020-07-11] MEDS ORDERED: METO25 PO (14:57)
[2020-07-11] MEDS ORDERED: FURO20 PO (14:58)
--- NOTE | 2020-07-11 16:07 | NUR ---
Pt departed from room ICU 4 at 1530, independently. Pt driving home. Dr Block and Dr Blood aware. Pt driving home to [place]. Medications called to [facility] in [place]. Educated pt on medications she is supposed to take tonight, and all new medications. Arranged echocardiogram appointment. Tried to make patrol guard follow up but they stated they will contact pt to make appointment. Pt departed with hard copies of orders for outpt echo and xray and these were faxed to imaging as well. Pt verbalized understanding of these DC instructions.
== END 2020-07-11 15:30 | disposition home or self-care (01) | DRG 315 ==
LOC: ER 16:16 → ICUE 17:24 → ICUW 17:24 → ICUE 19:10
PROVIDERS: Family Medicine; Internal Medicine Cardiovascular Disease; Nurse Practitioner Acute Care; Physician Assistant; ADMIT Internal Medicine
PROC: 0W9D30Z Drainage of Pericardial Cavity with Drainage Device, Percutaneous Approach (ICD-10-PCS; principal; 2020-07-07)
DX: I31.3 Pericardial effusion (noninflammatory) (principal); C91.10 Chronic lymphocytic leukemia of B-cell type not having achieved remission; Z68.41 Body mass index [BMI] 40.0-44.9, adult; J90 Pleural effusion, not elsewhere classified; I31.9 Disease of pericardium, unspecified; Z20.822 Contact with and (suspected) exposure to COVID-19; I10 Essential (primary) hypertension; R79.89 Other specified abnormal findings of blood chemistry; E03.9 Hypothyroidism, unspecified; F41.8 Other specified anxiety disorders; E66.9 Obesity, unspecified; E78.5 Hyperlipidemia, unspecified; K21.9 Gastro-esophageal reflux disease without esophagitis; Z79.899 Other long term (current) drug therapy; Z79.82 Long term (current) use of aspirin; Z92.21 Personal history of antineoplastic chemotherapy; Z90.89 Acquired absence of other organs; Z87.891 Personal history of nicotine dependence; Z88.8 Allergy status to other drugs, medicaments and biological substances
CPT/HCPCS: 0202U; 33016; 36415; 71045; 76937; 80053; 82042; 82945; 83615; 83986; 84157; 84478; 84484; 85025; 85651; 86140; 86141; 87015; 87070; 87102; 87116; 87205; 87206; 87252; 87254; 88108; 88305; 89051; 93005; 93010; 93306; 93308; 93321; 96361; 96374; 96375; 99152; 99153; 99285-25; A9270; C1769; J0360; J1644; J1940; J2250; J3010; J7030; J7050

== ENCOUNTER 2020-07-12 18:44 | Emergency (ER) | payer MEDICARE ==
[~2020-07-12] VITALS: Ht 167.6 cm; Wt 108.9 kg
[~2020-07-12 18:44] MED LIST changes: +Acetaminophen325 M1 PO; +COLCRYS0.6 M1 PO; +FURO20 PO; +INDO50 PO; +METO25 PO; +VITAMIN D310 MC4 PO; +VITAMIN D310 MC5 PO
[2020-07-12 20:26] LABS: BASOPHILS ABSOLUTE AUTO 0.06 K/mm3 (0.00-0.23); BASOPHILS PERCENT AUTO 1 % (0-2); EOSINOPHILS ABSOLUTE AUTO 0.08 K/mm3 (0.00-0.68); EOSINOPHILS PERCENT AUTO 1 % (0-6); Hematocrit 34.4 % (33.0-51.0); Hemoglobin 11.7 g/dL (11.5-16.0); IMMATURE GRAN ABSOLUTE AUTO 0.06 K/mm3 (0.00-0.10); IMMATURE GRAN PERCENT AUTO 1 % (0-1); LYMPHOCYTES ABSOLUTE AUTO 1.68 K/mm3 (0.84-5.20); LYMPHOCYTES PERCENT AUTO 15 % (21-46); MONOCYTES PERCENT AUTO 10 % (4-13); Mean Corpuscular HGB 30.2 pg (26.0-34.0); Mean Corpuscular Volume 89 fL (80-100); Mean Platelet Volume 11.3 fL (9.1-12.4); NEUTROPHILS ABSOLUTE AUTO 8.51 K/mm3 (1.96-9.15); NEUTROPHILS PERCENT AUTO 74 % (41-73); Platelet Count 232 K/mm3 (150-400); RDW Coefficient Variation 11.8 % (11.7-14.2); RDW Standard Deviation 38.2 fL (35.1-46.3); Red Blood Cell Count 3.87 M/mm3 (3.80-5.20); White Blood Cell Count 11.49 K/mm3 (4.00-11.30)
[2020-07-12 20:40] LABS: International Normalized Ratio 1.06; Prothrombin Time Results 11.4 Sec (9.7-11.5)
[2020-07-12 20:45] LABS: Alanine Aminotransfer (ALT/SGP 35 U/L (12-78); Albumin, Blood 2.8 g/dL (3.4-5.0); Albumin/Globulin Ratio 0.9 (0.8-1.8); Alk Phos 163 U/L (50-136); Anion Gap 6 mmol/L (6-16); Aspartate Aminotrans (AST/SGOT 18 U/L (12-37); Bilirubin, Total 0.6 mg/dL (0.1-1.0); Blood Urea Nitrogen 24 mg/dL (8-24); Bun/Creatinine Ratio 26.5 (12.0-20.0); CO2, Blood 28 mmol/L (21-32); Calcium, Blood 8.3 mg/dL (8.5-10.1); Chloride, Blood 100 mmol/L (98-108); Creatinine, Blood 0.91 mg/dL (0.40-1.00); Globulin, Blood 3.1 g/dL (2.2-4.0); Glomerular Filtration Rate >60 (60-); Glucose, Blood 122 mg/dL (70-99); Sodium, Blood 134 mmol/L (136-145); Total Protein, Blood 5.9 g/dL (6.4-8.2); Troponin I <0.015 ng/mL (0.000-0.040)
== END 2020-07-12 22:12 | disposition home or self-care (01) ==
LOC: ER 18:44
PROVIDERS: Emergency Medicine
DX: R06.02 Shortness of breath (principal); R53.81 Other malaise; Z79.899 Other long term (current) drug therapy; Z88.8 Allergy status to other drugs, medicaments and biological substances
CPT/HCPCS: 36415; 71046; 80053; 83880; 84484; 85025; 85610; 93005; 93010; 93308; 93321; 96374-59; 99285-25; J1940

== ENCOUNTER → 2021-05-13 | Outpatient (CLI) | payer OTHER ==
[2021-05-14 09:51] LABS: Stool Occult Bld Immuno 1 Negative (NEGATIVE)
== END | disposition home or self-care (01) ==
LOC: LAB SHORT 09:00 → LAB 09:00
PROVIDERS: Family Medicine
DX: Z12.11 Encounter for screening for malignant neoplasm of colon (principal)
CPT/HCPCS: G0328

== ENCOUNTER 2022-09-07 09:58 | Day surgery (SDC) | payer OTHER ==
[~2022-09-07] VITALS: Ht 165.1 cm; Wt 86.9 kg
[2022-09-07 12:42] VITALS: BP 139/77
== END 2022-09-07 13:04 | disposition home or self-care (01) ==
LOC: ORSCSDS 09:58
PROVIDERS: Internal Medicine Gastroenterology
PROC: 0DBK8ZX Excision of Ascending Colon, Via Natural or Artificial Opening Endoscopic, Diagnostic (ICD-10-PCS; principal; 2022-09-07 11:15)
PROC: 0DB58ZX Excision of Esophagus, Via Natural or Artificial Opening Endoscopic, Diagnostic (ICD-10-PCS; principal; 2022-09-07 11:15)
PROC: 0D758ZZ Dilation of Esophagus, Via Natural or Artificial Opening Endoscopic (ICD-10-PCS; principal; 2022-09-07 11:15)
PROC: 0DBL8ZX Excision of Transverse Colon, Via Natural or Artificial Opening Endoscopic, Diagnostic (ICD-10-PCS; principal; 2022-09-07 11:15)
DX: K21.9 Gastro-esophageal reflux disease without esophagitis (principal); R13.14 Dysphagia, pharyngoesophageal phase; Z12.11 Encounter for screening for malignant neoplasm of colon; Z86.010 Personal history of colon polyps; D12.2 Benign neoplasm of ascending colon; D12.3 Benign neoplasm of transverse colon; K22.2 Esophageal obstruction; K64.8 Other hemorrhoids; K57.30 Diverticulosis of large intestine without perforation or abscess without bleeding; Z87.891 Personal history of nicotine dependence; E78.5 Hyperlipidemia, unspecified; Z79.899 Other long term (current) drug therapy
CPT/HCPCS: 88305; C1726; J2704; J7040; J7120

== ENCOUNTER → 2022-12-23 | Outpatient (CLI) | payer OTHER | LOC: LAB SHORT 12:22 → PLD 12:22 → LAB 12:22 | DX: D48.5 Neoplasm of uncertain behavior of skin (principal) | CPT/HCPCS: 88305 ==

== ENCOUNTER 2023-10-24 08:52 | Inpatient (IN) | payer OTHER ==
[~2023-10-24] VITALS: Ht 167.6 cm; Wt 89.0 kg
[~2023-10-24 08:52] MED LIST changes: +HYDCHL25 PO; -LEVO-T75 MCG PO; +LEVSOD75 PO; +XARELTO20 MG PO
[2023-10-24 09:52] LABS: Albumin, Blood 2.8 g/dL (3.4-5.0); Albumin/Globulin Ratio 0.9 (0.8-1.8); Bilirubin, Total 1.9 mg/dL (0.1-1.0); Bun/Creatinine Ratio 32.1 (12.0-20.0); Calcium, Blood 8.6 mg/dL (8.5-10.1); Creatinine, Blood 1.12 mg/dL (0.40-1.00); Globulin, Blood 3.1 g/dL (2.2-4.0); Magnesium, Blood 2.3 mg/dL (1.6-2.4); Potassium, Blood 4.6 mmol/L (3.5-5.5); Total Protein, Blood 5.9 g/dL (6.4-8.2)
[2023-10-24] MEDS ORDERED: Aspirin 81 MG Chew PO ONE (11:30)
[2023-10-24 12:29] LABS: BASOPHILS ABSOLUTE AUTO 0.08 K/mm3 (0.00-0.23); BASOPHILS PERCENT AUTO 1 % (0-2); EOSINOPHILS ABSOLUTE AUTO 0.07 K/mm3 (0.00-0.68); EOSINOPHILS PERCENT AUTO 1 % (0-6); Hematocrit 37.3 % (33.0-51.0); Hemoglobin 12.6 g/dL (11.5-16.0); IMMATURE GRAN ABSOLUTE AUTO 0.13 K/mm3 (0.00-0.10); IMMATURE GRAN PERCENT AUTO 1 % (0-1); LYMPHOCYTES ABSOLUTE AUTO 2.73 K/mm3 (0.84-5.20); LYMPHOCYTES PERCENT AUTO 19 % (21-46); MONOCYTES ABSOLUTE AUTO 0.92 K/mm3 (0.16-1.47); MONOCYTES PERCENT AUTO 7 % (4-13); Mean Corpuscular HGB 32.3 pg (26.0-34.0); Mean Corpuscular HGB Conc 33.8 g/dL (31.5-36.5); Mean Corpuscular Volume 96 fL (80-100); NEUTROPHILS ABSOLUTE AUTO 10.11 K/mm3 (1.96-9.15); NEUTROPHILS PERCENT AUTO 72 % (41-73); RDW Standard Deviation 55.8 fL (35.1-46.3); White Blood Cell Count 14.04 K/mm3 (4.00-11.30)
[2023-10-24 12:33] LABS: Platelet Count 11 K/mm3 (150-400)
[2023-10-24] MEDS ORDERED: Acetaminophen 325 MG TABLET PO PRN (14:50)
[2023-10-24 14:54] LABS: International Normalized Ratio 1.72; Prothrombin Time Results 17.7 Sec (9.7-11.5)
[2023-10-24 16:20] LABS: Hematocrit 34.3 % (33.0-51.0); Hemoglobin 11.7 g/dL (11.5-16.0); Mean Corpuscular HGB 31.8 pg (26.0-34.0); Mean Corpuscular HGB Conc 34.1 g/dL (31.5-36.5); Mean Corpuscular Volume 93 fL (80-100); RDW Coefficient Variation 15.8 % (11.7-14.2); RDW Standard Deviation 53.8 fL (35.1-46.3); Red Blood Cell Count 3.68 M/mm3 (3.80-5.20); White Blood Cell Count 12.29 K/mm3 (4.00-11.30)
[2023-10-24 16:23] VITALS: BP 172/85
[2023-10-24] MEDS ORDERED: GABA300 PO (16:28)
[2023-10-24] MEDS ORDERED: HYDHCL25 PO (16:29)
[2023-10-24 16:30] LABS: Platelet Count 12 K/mm3 (150-400)
[2023-10-24 17:10] LABS: Platelet Count 14 K/mm3 (150-400)
[2023-10-24 17:39] LABS: BASOPHILS ABSOLUTE MAN 0.12 K/mm3 (0.00-0.23); BASOPHILS PERCENT MAN 1 % (0-2); EOSINOPHILS ABSOLUTE MAN 0.36 K/mm3 (0.00-0.68); EOSINOPHILS PERCENT MAN 3 % (0-6); LYMPHOCYTES ABSOLUTE MAN 3.31 K/mm3 (0.84-5.20); LYMPHOCYTES PERCENT MAN 27 % (21-46); MONOCYTES ABSOLUTE MAN 0.98 K/mm3 (0.16-1.47); MONOCYTES PERCENT MAN 8 % (4-13); NEUTROPHILS ABSOLUTE MAN 7.49 K/mm3 (1.96-9.15); SEG NEUTROPHILS PERCENT MAN 61 % (41-73); TOTAL CELLS COUNTED 100
--- NOTE | 2023-10-24 17:57 | NUR ---
ADMISSION NOTE: PATIENT ARRIVES TO ROOM AT 1617 VIA GURNEY FROM ER FOR DX'S OF BILAT PE. PATIENT TRANSFERRED TO BED c SBA. ADMISSION, MEDRIC AND SKIN ASSESSMENT c 2 RN'S VERIFIED COMPLETED. PATIENT ORIENTATED TO ROOM AND CALL SYSTEM. PATIENT A/OX4, ANSWER TO QUESTIONS APPROPRIATELY AND ABLE TO MAKE NEEDS KNOWN. PATIENT DENIES CP/PRESSURE, SOB, N/V AND DIZZINESS. PATIENT ON TELE NSR HR IN THE 80'S BPM. PATIENT HAD CRITICAL LAB RESULT PLATELETS OF 14 SLOWLY TRENDING UP, NOTIFIED LEASING MANAGER, ANABEL HERNDON. PER HOMERO TO [facility]. DR. SIMS ORDER CONSULT FOR THROMBOCYTOPENIA. CONSULT PLACED TO DR. KELLY SALCIDO (HEMATOLOGY), THIS RN SPOKE TO ANSWERING SERVICE AT 1755. PATIENT CONTINENT OF BLADDER, AMBULATES TO BATHROOM/BACK IN BED c SBA. KNEE HIGH ARACELI HOSE IN PLACED TO BLE'S. PATIENT CURRENTLY SITTING UPRIGHT IN BED HAVING DINNER AT THIS TIME c CALL LIGHT IN REACH.
[2023-10-24 20:45] VITALS: BP 163/75
[2023-10-24] MEDS ORDERED: Atorvastatin 10 MG Tab PO SCH (21:00)
[2023-10-24] MEDS ORDERED: Gabapentin 300 MG Cap PO SCH (21:00)
[2023-10-25] VITALS (7 sets, daily range): BP systolic 136–156; BP diastolic 72–83
[2023-10-25 05:56] LABS: BASOPHILS ABSOLUTE AUTO 0.09 K/mm3 (0.00-0.23); BASOPHILS PERCENT AUTO 1 % (0-2); EOSINOPHILS ABSOLUTE AUTO 0.24 K/mm3 (0.00-0.68); EOSINOPHILS PERCENT AUTO 2 % (0-6); Hematocrit 35.3 % (33.0-51.0); Hemoglobin 11.9 g/dL (11.5-16.0); IMMATURE GRAN ABSOLUTE AUTO 0.15 K/mm3 (0.00-0.10); IMMATURE GRAN PERCENT AUTO 1 % (0-1); LYMPHOCYTES ABSOLUTE AUTO 2.26 K/mm3 (0.84-5.20); LYMPHOCYTES PERCENT AUTO 19 % (21-46); MONOCYTES ABSOLUTE AUTO 0.82 K/mm3 (0.16-1.47); MONOCYTES PERCENT AUTO 7 % (4-13); Mean Corpuscular HGB 31.8 pg (26.0-34.0); Mean Corpuscular HGB Conc 33.7 g/dL (31.5-36.5); Mean Corpuscular Volume 94 fL (80-100); NEUTROPHILS ABSOLUTE AUTO 8.47 K/mm3 (1.96-9.15); NEUTROPHILS PERCENT AUTO 71 % (41-73); RDW Coefficient Variation 15.9 % (11.7-14.2); RDW Standard Deviation 54.4 fL (35.1-46.3); Red Blood Cell Count 3.74 M/mm3 (3.80-5.20); White Blood Cell Count 12.03 K/mm3 (4.00-11.30)
--- NOTE | 2023-10-25 05:56 | NUR ---
SHIFT SUMMARY: Pt is admitted for bilateral pulmonary embolism and is a DNR. is alert and able to make needs known. ADLs have been SBA. denies pain or discomfort when asked. Was taken for MRI and CT at the start of shift. Waiting for MD review of results. Kris reports sinus in the 80s.
[2023-10-25] MEDS ORDERED: Levothyroxine Sodium 0.075 MG Tab PO SCH (06:00)
[2023-10-25 06:01] LABS: Platelet Count 11 K/mm3 (150-400)
[2023-10-25 06:52] LABS: Albumin, Blood 2.6 g/dL (3.4-5.0); Bilirubin, Total 1.3 mg/dL (0.1-1.0); Bun/Creatinine Ratio 29.9 (12.0-20.0); Calcium, Blood 8.6 mg/dL (8.5-10.1); Creatinine, Blood 1.07 mg/dL (0.40-1.00); Globulin, Blood 2.7 g/dL (2.2-4.0); Potassium, Blood 4.7 mmol/L (3.5-5.5); Total Protein, Blood 5.3 g/dL (6.4-8.2)
[2023-10-25] MEDS ORDERED: Losartan Potassium 50 MG Tab PO SCH (09:00)
[2023-10-25 11:38] LABS: International Normalized Ratio 1.71; Prothrombin Time Results 17.6 Sec (9.7-11.5)
[2023-10-25] MEDS ORDERED: NS 500 ML IV SCH (15:25)
[2023-10-25] MEDS ORDERED: OxyCODONE HCL 5 MG TAB PO PRN (16:40)
[2023-10-25] MEDS ORDERED: Dexamethasone Sod Phos 10 MG/ML 1ML VIAL IV ONE (18:15)
[2023-10-25] MEDS ORDERED: Ondansetron HCl 2 MG / ML 2ML Vial IV PRN (18:15)
[2023-10-25] MEDS ORDERED: Acetaminophen 325 MG TABLET PO PRN (18:15)
[2023-10-25] MEDS ORDERED: DiphenhydrAMINE HCl 50 MG Cap PO PRN (18:15)
--- NOTE | 2023-10-25 18:40 | NUR ---
SHIFT SUMMARY PT IS A&0X4. PT REPORTED PAIN ON R AXILLARY. PAIN MANAGED WITH ICE PACK. VITAL SIGNS STABLE. PT ON CONT. PULSE OX. SPO2 AT 90%. PT IS ON TELE. PT REPORTS NO CHEST DISCOMFORT/SOB. PT IS ON ROOM AIR. PT AMBULATES TO THE TOILET WITH SBA. PT IS PLEASANT AND COOROPERATIVE. CALLS APPROPRIATELY. CALL LIGHT IN REACH.
[2023-10-25 19:31] LABS: BASOPHILS ABSOLUTE AUTO 0.07 K/mm3 (0.00-0.23); BASOPHILS PERCENT AUTO 1 % (0-2); EOSINOPHILS ABSOLUTE AUTO 0.24 K/mm3 (0.00-0.68); EOSINOPHILS PERCENT AUTO 2 % (0-6); Hemoglobin 12.1 g/dL (11.5-16.0); IMMATURE GRAN ABSOLUTE AUTO 0.17 K/mm3 (0.00-0.10); IMMATURE GRAN PERCENT AUTO 2 % (0-1); LYMPHOCYTES ABSOLUTE AUTO 2.51 K/mm3 (0.84-5.20); LYMPHOCYTES PERCENT AUTO 23 % (21-46); MONOCYTES ABSOLUTE AUTO 0.84 K/mm3 (0.16-1.47); MONOCYTES PERCENT AUTO 8 % (4-13); Mean Corpuscular HGB 31.8 pg (26.0-34.0); Mean Corpuscular HGB Conc 33.6 g/dL (31.5-36.5); Mean Corpuscular Volume 95 fL (80-100); NEUTROPHILS ABSOLUTE AUTO 7.24 K/mm3 (1.96-9.15); NEUTROPHILS PERCENT AUTO 65 % (41-73); RDW Coefficient Variation 15.9 % (11.7-14.2); RDW Standard Deviation 55.1 fL (35.1-46.3); White Blood Cell Count 11.07 K/mm3 (4.00-11.30)
[2023-10-25 19:39] LABS: Platelet Count 37 K/mm3 (150-400)
[2023-10-26] VITALS (7 sets, daily range): BP systolic 121–157; BP diastolic 62–94
--- NOTE | 2023-10-26 05:22 | NUR ---
SHIFT SUMMARY PATIENT ABLE TO SLEEP, DID GIVE PAIN MED ONE TIME FOR BACK/SPLEEN AREA PAIN THAT COMPLETELY RESOLVED IT. TELE SR 90. VITALS STABLE.
[2023-10-26 05:59] LABS: BASOPHILS ABSOLUTE AUTO 0.06 K/mm3 (0.00-0.23); BASOPHILS PERCENT AUTO 1 % (0-2); EOSINOPHILS ABSOLUTE AUTO 0.26 K/mm3 (0.00-0.68); EOSINOPHILS PERCENT AUTO 3 % (0-6); Hematocrit 35.2 % (33.0-51.0); IMMATURE GRAN ABSOLUTE AUTO 0.16 K/mm3 (0.00-0.10); IMMATURE GRAN PERCENT AUTO 2 % (0-1); LYMPHOCYTES ABSOLUTE AUTO 2.21 K/mm3 (0.84-5.20); LYMPHOCYTES PERCENT AUTO 23 % (21-46); MONOCYTES ABSOLUTE AUTO 0.73 K/mm3 (0.16-1.47); MONOCYTES PERCENT AUTO 7 % (4-13); Mean Corpuscular HGB 32.3 pg (26.0-34.0); Mean Corpuscular HGB Conc 34.1 g/dL (31.5-36.5); Mean Corpuscular Volume 95 fL (80-100); NEUTROPHILS ABSOLUTE AUTO 6.38 K/mm3 (1.96-9.15); NEUTROPHILS PERCENT AUTO 65 % (41-73); RDW Coefficient Variation 15.9 % (11.7-14.2); RDW Standard Deviation 54.8 fL (35.1-46.3); Red Blood Cell Count 3.71 M/mm3 (3.80-5.20)
[2023-10-26 06:06] LABS: Platelet Count 21 K/mm3 (150-400)
[2023-10-26 06:21] LABS: Albumin, Blood 2.6 g/dL (3.4-5.0); Bilirubin, Total 1.2 mg/dL (0.1-1.0); Bun/Creatinine Ratio 26.2 (12.0-20.0); Calcium, Blood 8.5 mg/dL (8.5-10.1); Creatinine, Blood 1.03 mg/dL (0.40-1.00); Globulin, Blood 2.7 g/dL (2.2-4.0); Potassium, Blood 4.7 mmol/L (3.5-5.5); Total Protein, Blood 5.3 g/dL (6.4-8.2)
[2023-10-26] MEDS ORDERED: Dexamethasone Sod Phos 10 MG/ML 1ML VIAL IV PRN (07:25)
[2023-10-26] MEDS ORDERED: NS IV SCH ×2 (09:00→12:00)
[2023-10-26] MEDS ORDERED: RITUXIMAB ABBS IV SCH ×2 (09:00→12:00)
[2023-10-26 09:09] LABS: International Normalized Ratio 1.72; Prothrombin Time Results 17.7 Sec (9.7-11.5)
[2023-10-26] MEDS ORDERED: NS IV ONE ×2 (12:00→13:00)
[2023-10-26] MEDS ORDERED: RITUXIMAB IV ONE ×2 (12:00→13:00)
[2023-10-26] MEDS ORDERED: Dexamethasone Sod Phos 10 MG/ML 1ML VIAL IV ONE (12:30)
[2023-10-26] MEDS ORDERED: Ondansetron HCl 2 MG / ML 2ML Vial IV ONE (12:30)
[2023-10-26] MEDS ORDERED: DiphenhydrAMINE HCl 50 MG Cap PO ONE (12:30)
[2023-10-26] MEDS ORDERED: Acetaminophen 325 MG TABLET PO ONE (12:30)
--- NOTE | 2023-10-26 14:11 | NUR ---
PT HAS HAD NO C/O ADVERSE REACTIONS SUCH RASH, ITCHING, SOB. HIVES, SWELLING SINCE START OF INFUSION. PT IS DROWSY FROM PRE MEDICATIONS. O2 SATS WERE ABOVE 90% WHEN SHE IS AWAKE AND ALERT BUT WHEN SHE FALLS ASLEEP SATS DROP TO 85%. PLACED PT ON 2 LPM VIA NC TO MAINTAIN SATS ABOVE 90% WHEN SHE IS SLEEPING. PT IS CUURENTLY EASILY AWAKENED AND SATS ARE 97% ON 2 LPM VIA NC. SHE IS ABLE TO ANSWER QUESTIONS APPROPRIATELY. TITRATED RITUXIMAB MEDICATION TO 33.6 ML/HR PER TITRATION PROTOCOL. VERIFIED TITRATION WITH CARLIE CHESTER RN.
[2023-10-26 14:47] LABS: BASOPHILS ABSOLUTE AUTO 0.03 K/mm3 (0.00-0.23); BASOPHILS PERCENT AUTO 1 % (0-2); EOSINOPHILS ABSOLUTE AUTO 0.07 K/mm3 (0.00-0.68); EOSINOPHILS PERCENT AUTO 1 % (0-6); Hematocrit 34.2 % (33.0-51.0); Hemoglobin 11.8 g/dL (11.5-16.0); IMMATURE GRAN ABSOLUTE AUTO 0.11 K/mm3 (0.00-0.10); IMMATURE GRAN PERCENT AUTO 2 % (0-1); LYMPHOCYTES PERCENT AUTO 7 % (21-46); MONOCYTES ABSOLUTE AUTO 0.18 K/mm3 (0.16-1.47); MONOCYTES PERCENT AUTO 3 % (4-13); Mean Corpuscular HGB 32.4 pg (26.0-34.0); Mean Corpuscular HGB Conc 34.5 g/dL (31.5-36.5); Mean Corpuscular Volume 94 fL (80-100); NEUTROPHILS ABSOLUTE AUTO 4.92 K/mm3 (1.96-9.15); NEUTROPHILS PERCENT AUTO 86 % (41-73); RDW Coefficient Variation 15.9 % (11.7-14.2); RDW Standard Deviation 53.7 fL (35.1-46.3); Red Blood Cell Count 3.64 M/mm3 (3.80-5.20); White Blood Cell Count 5.71 K/mm3 (4.00-11.30)
[2023-10-26 14:51] LABS: Platelet Count 20 K/mm3 (150-400)
[2023-10-26 15:28] LABS: Albumin, Blood 2.6 g/dL (3.4-5.0); Bilirubin, Total 1.2 mg/dL (0.1-1.0); Calcium, Blood 8.1 mg/dL (8.5-10.1); Creatinine, Blood 0.97 mg/dL (0.40-1.00); Globulin, Blood 2.6 g/dL (2.2-4.0); Phosphorus, Blood 4.1 mg/dL (2.5-4.9); Potassium, Blood 4.9 mmol/L (3.5-5.5); Total Protein, Blood 5.2 g/dL (6.4-8.2)
--- NOTE | 2023-10-26 16:30 | NUR ---
LATE ENTRY:TITRATED RITUXAN TO 50.4 ML PER HOUR. VERIFIED TITRATION WITH ANIA RAHMAN RN. PT TOLERATING WELL. NO ADVERSE REACTIONS AT THIS TIME.
--- NOTE | 2023-10-26 18:13 | NUR ---
SHIFT SUMMARY PT IS A&OX4. VSS. PT STARTED NEW CHEMO DRUG AND PT HAD NO ADVERSE REACTIONS WITH TITRATION AND DENIES FEVER/CHEST PAIN/DIZZINESS. PT COMPLAINS OF AXILLARY PAIN ON RIGHT SIDE, STATES REST, OXYCODONE, AND HAND PRESSURE ON SIDE IMPROVES PAIN. PT IS ON TELE. HR IS 96 BPM. PT'S SPO2 DECREASED TO 85% WHILE SLEEPING. DR. YOUNG ORDERED 2L OF OX VIA NC. PT HAD CRITICAL PLATELET LAB VALUE OF 20. CRITICAL LAB VALUE WAS REPORTED TO CHARGE NURSE. TOLERATES REGULAR DIET BUT STATES SHE HASN'T BEEN EATING TOO MUCH. PT ABLE TO AMBULATE TO TOILET INDEPENDENTLY TO VOID, SHE CALLS APPROPRIATLY PRIOR TO AMBULATING SELF. CALL LIGHT IN REACH.
[2023-10-27 04:01] VITALS: BP 134/68
--- NOTE | 2023-10-27 04:21 | NUR ---
SHIFT SUMMARY 78 YR F ADMITTED ON 10/24/23. DNR. NO ACUTE CHANGES THIS SHIFT. PT MEDICATED ONCE THIS SHIFT FOR PAIN IN RIGHT AXILLARY AREA. NO OTHER C/O DISCOMFORT OR N/V. SHE IS PLEASANT AND COOPERATIVE WITH CARE AND CALLS APPROPRIATELY FOR ASSISTANCE WHEN NEEDED. SHE APPEARS TO HAVE RESTED COMFORTABLY THROUGHOUT SHIFT. BED IN LOW POSITION AND CALL LIGHT IN REACH. WILL CONTINUE TO MONITOR.
[2023-10-27 05:12] LABS: BASOPHILS ABSOLUTE AUTO 0.02 K/mm3 (0.00-0.23); BASOPHILS PERCENT AUTO 0 % (0-2); EOSINOPHILS ABSOLUTE AUTO 0.02 K/mm3 (0.00-0.68); EOSINOPHILS PERCENT AUTO 0 % (0-6); Hematocrit 33.8 % (33.0-51.0); Hemoglobin 11.5 g/dL (11.5-16.0); IMMATURE GRAN ABSOLUTE AUTO 0.19 K/mm3 (0.00-0.10); IMMATURE GRAN PERCENT AUTO 2 % (0-1); LYMPHOCYTES ABSOLUTE AUTO 1.35 K/mm3 (0.84-5.20); LYMPHOCYTES PERCENT AUTO 12 % (21-46); MONOCYTES ABSOLUTE AUTO 0.47 K/mm3 (0.16-1.47); MONOCYTES PERCENT AUTO 4 % (4-13); Mean Corpuscular HGB 31.9 pg (26.0-34.0); Mean Corpuscular Volume 94 fL (80-100); NEUTROPHILS ABSOLUTE AUTO 9.21 K/mm3 (1.96-9.15); NEUTROPHILS PERCENT AUTO 82 % (41-73); RDW Coefficient Variation 15.9 % (11.7-14.2); RDW Standard Deviation 54.8 fL (35.1-46.3); White Blood Cell Count 11.26 K/mm3 (4.00-11.30)
[2023-10-27 05:18] LABS: Platelet Count 25 K/mm3 (150-400)
[2023-10-27 05:41] LABS: Albumin, Blood 2.6 g/dL (3.4-5.0); Bilirubin, Total 0.8 mg/dL (0.1-1.0); Bun/Creatinine Ratio 27.8 (12.0-20.0); Calcium, Blood 8.2 mg/dL (8.5-10.1); Creatinine, Blood 1.15 mg/dL (0.40-1.00); Globulin, Blood 2.7 g/dL (2.2-4.0); Phosphorus, Blood 4.3 mg/dL (2.5-4.9); Potassium, Blood 5.4 mmol/L (3.5-5.5); Total Protein, Blood 5.3 g/dL (6.4-8.2)
--- NOTE | 2023-10-27 05:50 | NUR ---
CRITICAL PLATELET COUNT OF 25 RECEIVED BY LAB AT 0518 THIS A.M. CHARGE NURSE NOTIFIED AND HOSPITALIST CONTACTED. NO INTERVENTION AT THIS TIME.
[2023-10-27 07:39] VITALS: BP 141/86
[2023-10-27 10:01] LABS: International Normalized Ratio 1.95; Prothrombin Time Results 19.9 Sec (9.7-11.5)
[2023-10-27] MEDS ORDERED: OXAYDO5 M4 PO (14:12)
--- NOTE | 2023-10-27 17:14 | NUR ---
REPORT RECEIVED VERIFIED PT HOPING TO BE DISCHARGED TODAY, NO DISTRESS NO C/O PAIN. IN THIS MORNING AND WOULD AWAIT FOR LABS BEFORE DECIDING TO DC. PT IS JESSICA TO STAY BUT WOULD PERFER GOING HOME, PT ABLE TO MAKE NEEDS KNOWN. DR LEROY SEE PT AGAIN AND GAVE DISCHARGE ORDERS AND INSTRUCTED PT TO GET LABS DRAWN TOMORROW. PT INDEPENDANT IN ROOM AND VSS, RIDE TO RELAY MOTORMAN AT 3. IV DCED INSTRUCTIONS GIVEN, MEDS FAXED TO PHARMACY. PT DISCHARGED
== END 2023-10-27 15:42 | disposition home or self-care (01) | DRG 176 ==
LOC: ER 08:52 → MEDS 15:59
PROVIDERS: Physician Assistant; ADMIT Family Medicine
DX: I26.94 Multiple subsegmental thrombotic pulmonary emboli without acute cor pulmonale (principal); C91.10 Chronic lymphocytic leukemia of B-cell type not having achieved remission; J90 Pleural effusion, not elsewhere classified; E03.9 Hypothyroidism, unspecified; I10 Essential (primary) hypertension; E78.5 Hyperlipidemia, unspecified; D69.6 Thrombocytopenia, unspecified; D73.5 Infarction of spleen; E66.9 Obesity, unspecified; D64.9 Anemia, unspecified; Z66 Do not resuscitate; F41.8 Other specified anxiety disorders; E55.9 Vitamin D deficiency, unspecified; K21.9 Gastro-esophageal reflux disease without esophagitis; Z90.89 Acquired absence of other organs; Z98.890 Other specified postprocedural states; Z87.891 Personal history of nicotine dependence; Z88.8 Allergy status to other drugs, medicaments and biological substances; Z79.890 Hormone replacement therapy; Z79.01 Long term (current) use of anticoagulants; Z79.899 Other long term (current) drug therapy; Z68.31 Body mass index [BMI] 31.0-31.9, adult
CPT/HCPCS: 36415; 36430; 70551; 71046; 71260; 74177; 80053; 82248; 83735; 83880; 84100; 84484; 85025; 85049; 85060; 85379; 85384; 85610; 85730; 86900; 86901; 93005; 93010; 93970; 94760; 94762; 99285-25; A9270; J1100; J2405; J7040; J7050; J9312; P9035; Q9967

== ENCOUNTER 2023-11-11 17:54 | Emergency (ER) | payer OTHER ==
[~2023-11-11] VITALS: Ht 167.6 cm; Wt 89.4 kg
[~2023-11-11 17:54] MED LIST changes: +BRUKINSA80 MG PO; +GABA300 PO; +HYDHCL25 PO; +OXAYDO5 M4 PO
[2023-11-11 18:53] LABS: BASOPHILS ABSOLUTE AUTO 0.07 K/mm3 (0.00-0.23); BASOPHILS PERCENT AUTO 0 % (0-2); EOSINOPHILS ABSOLUTE AUTO 0.16 K/mm3 (0.00-0.68); EOSINOPHILS PERCENT AUTO 1 % (0-6); Hematocrit 38.6 % (33.0-51.0); Hemoglobin 12.7 g/dL (11.5-16.0); IMMATURE GRAN ABSOLUTE AUTO 0.25 K/mm3 (0.00-0.10); IMMATURE GRAN PERCENT AUTO 1 % (0-1); LYMPHOCYTES ABSOLUTE AUTO 3.06 K/mm3 (0.84-5.20); LYMPHOCYTES PERCENT AUTO 15 % (21-46); MONOCYTES ABSOLUTE AUTO 1.03 K/mm3 (0.16-1.47); MONOCYTES PERCENT AUTO 5 % (4-13); Mean Corpuscular HGB 31.8 pg (26.0-34.0); Mean Corpuscular HGB Conc 32.9 g/dL (31.5-36.5); Mean Corpuscular Volume 97 fL (80-100); NEUTROPHILS ABSOLUTE AUTO 16.28 K/mm3 (1.96-9.15); NEUTROPHILS PERCENT AUTO 78 % (41-73); RDW Coefficient Variation 16.7 % (11.7-14.2); RDW Standard Deviation 59.7 fL (35.1-46.3); Red Blood Cell Count 3.99 M/mm3 (3.80-5.20); White Blood Cell Count 20.85 K/mm3 (4.00-11.30)
[2023-11-11 18:58] LABS: Platelet Count 10 K/mm3 (150-400)
[2023-11-11 19:09] LABS: Bun/Creatinine Ratio 40.1 (12.0-20.0); Calcium, Blood 8.2 mg/dL (8.5-10.1); Creatinine, Blood 1.47 mg/dL (0.40-1.00); Potassium, Blood 5.6 mmol/L (3.5-5.5)
[2023-11-11 21:57] LABS: International Normalized Ratio 2.49; Prothrombin Time Results 24.9 Sec (9.7-11.5)
[2023-11-11 23:00] VITALS: BP 114/51
== END 2023-11-11 23:25 | disposition home or self-care (01) ==
LOC: ER 17:54
PROVIDERS: Emergency Medicine
DX: D69.6 Thrombocytopenia, unspecified (principal); Z87.891 Personal history of nicotine dependence; Z79.899 Other long term (current) drug therapy; Z88.8 Allergy status to other drugs, medicaments and biological substances; C91.10 Chronic lymphocytic leukemia of B-cell type not having achieved remission
CPT/HCPCS: 36415; 36430; 80048; 85025; 85610; 85730; 86900; 86901; 99284-25; P9035

== ENCOUNTER 2023-11-15 03:03 | Day surgery (SDC) | payer OTHER ==
[2023-11-14 12:09] LABS: BASOPHILS ABSOLUTE AUTO 0.06 K/mm3 (0.00-0.23); BASOPHILS PERCENT AUTO 0 % (0-2); EOSINOPHILS ABSOLUTE AUTO 0.23 K/mm3 (0.00-0.68); EOSINOPHILS PERCENT AUTO 1 % (0-6); Hematocrit 38.9 % (33.0-51.0); IMMATURE GRAN ABSOLUTE AUTO 0.27 K/mm3 (0.00-0.10); IMMATURE GRAN PERCENT AUTO 2 % (0-1); LYMPHOCYTES ABSOLUTE AUTO 4.38 K/mm3 (0.84-5.20); LYMPHOCYTES PERCENT AUTO 24 % (21-46); MONOCYTES ABSOLUTE AUTO 0.93 K/mm3 (0.16-1.47); MONOCYTES PERCENT AUTO 5 % (4-13); Mean Corpuscular HGB Conc 33.4 g/dL (31.5-36.5); Mean Corpuscular Volume 96 fL (80-100); NEUTROPHILS ABSOLUTE AUTO 12.31 K/mm3 (1.96-9.15); NEUTROPHILS PERCENT AUTO 68 % (41-73); RDW Coefficient Variation 16.5 % (11.7-14.2); RDW Standard Deviation 58.4 fL (35.1-46.3); Red Blood Cell Count 4.06 M/mm3 (3.80-5.20); White Blood Cell Count 18.18 K/mm3 (4.00-11.30)
[2023-11-14 12:33] LABS: Platelet Count 8 K/mm3 (150-400)
[2023-11-15] MEDS ORDERED: NS 250 ML IV SCH (07:25)
[2023-11-15] MEDS ORDERED: NS 500 ML IV SCH (13:25)
[2023-11-15 13:47] VITALS: BP 78/51
[2023-11-15 14:09] VITALS: BP 96/67
[2023-11-15 14:48] VITALS: BP 101/58
== END 2023-11-15 15:29 | disposition home or self-care (01) ==
LOC: ATC 03:03
PROVIDERS: Internal Medicine Hematology & Oncology
DX: C91.10 Chronic lymphocytic leukemia of B-cell type not having achieved remission (principal); E03.9 Hypothyroidism, unspecified; E78.5 Hyperlipidemia, unspecified; I10 Essential (primary) hypertension; K21.9 Gastro-esophageal reflux disease without esophagitis; Z79.890 Hormone replacement therapy; Z79.899 Other long term (current) drug therapy; Z88.7 Allergy status to serum and vaccine; Z88.8 Allergy status to other drugs, medicaments and biological substances
CPT/HCPCS: 36415; 36430; 85025; J7030; P9035